=== PATIENT | female | born 1995 | race Two or more races ===

== ENCOUNTER 2024-10-12 19:53 | Inpatient (IN) | payer OTHER ==
[~2024-10-12] VITALS: Ht 165.1 cm; Wt 99.8 kg
--- NOTE | 2024-10-12 20:01 | NUR ---
SE RECIBE FEMINA ALERTA Y ORIENTADA X3 EN AMBULANCIA DEL [facility]O AMBULATORIO [facility]IS[facility] CAGUAS POR SUSPECTED DENGUE Y ANEMIA. SE MIDEN S/V, SE REALIZA EKG Y SE CONECTA PACIENTE A MONITOR CARDIACO Y OXIMETRIA DE PULSO.
[2024-10-12] MEDS ORDERED: 0.9 % SODIUM CHLORIDE 1,000 ML IV STA (20:13)
--- NOTE | 2024-10-12 20:36 | NUR ---
PTE ALERTA Y ORIENTADA X3[place] ORIENTA SOBRE TX MEDICO ,REFIERE ACEPTAR . REALIZA ORDENES EN GARCIA TOTALIDAD
[2024-10-12 21:19] LABS: CALCIUM 8.7 mg/dL (8.5-10.1); CREATININE SERUM 0.73 mg/dL (0.55-1.02); GFR 94.93; POTASSIUM 3.8 mEq/L (3.5-5.1)
[2024-10-12 21:20] LABS: INR 1.21; PARTIAL THROMBOPLASTIN TIME 27.3 SECONDS (22.0-34.0)
[2024-10-12 21:48] LABS: MEAN CELL VOLUME 83.2 fL (80.00-100.00); MEAN CORPUSCULAR HGB CONC 35.7 g/dl (32.0-36.0); RED CELL DISTRIBUTION WIDTH 16.2 % (11.5-14.5)
[2024-10-12 21:50] LABS: MEAN CORPUSCULAR HEMOGLOBIN 29.9 pg (27.00-32.0)
[2024-10-12 21:53] LABS: HEMATOCRIT 16.4 % (36.0-45.00); HEMOGLOBIN 5.9 g/dL (12.0-15.00)
[2024-10-12 22:22] LABS: RED BLOOD COUNT 1.97 M/uL (4.00-6.00)
[2024-10-12 22:31] LABS: URINE APPEARANCE Clear; URINE BILIRRUBIN Negative (NEGATIVE); URINE BLOOD Large; URINE COLOR Orange; URINE GLUCOSE Negative (NEGATIVE); URINE KETONE Negative (NEGATIVE); URINE LEUKOCYTE Trace; URINE NITRATE Negative
[2024-10-12 22:33] LABS: ALBUMIN 3.2 gm/dL (3.4-5.0); BILIRUBIN TOTAL 1.48 mg/dL (0.3-1.2); BILIRUBIN,CONJUGATED 0.38 mg/dL (0.0-0.2); BILIRUBIN,UNCONJUGATED 1.1 mg/dL (0.0-0.6); TOTAL PROTEIN 6.5 gm/dL (6.4-8.2)
[2024-10-12 22:35] LABS: URINE BACTERIA 1553.1 uL (0.0-1933); URINE EPITHELIAL CELLS 29.1 uL (0.0-38.8); URINE RBC 4691.5 uL (0.0-20.8); URINE WBC 30.2 uL (0.0-23.2)
[2024-10-12 22:45] LABS: URINE PROTEIN 100 (NEGATIVE)
[2024-10-12] MEDS ORDERED: ESTROGENS, CONJUGATED 25 MG VIAL IV ONE (23:15)
[2024-10-13] VITALS (9 sets, daily range): BP systolic 109–140; BP diastolic 57–82; O2SAT 96–100
[2024-10-13] MEDS ORDERED: 0.9 % SODIUM CHLORIDE 1,000 ML IV SCH (00:15)
[2024-10-13] MEDS ORDERED: PIPERACILLIN/TAZOBACTAM SODIUM 3.375 GM in DEXTROSE 5 % IN WATER 100 ML IV SCH (00:17)
[2024-10-13] MEDS ORDERED: PANTOPRAZOLE SODIUM 40 MG/VIAL VIAL IV SCH (00:18)
[2024-10-13] MEDS ORDERED: ACETAMINOPHEN 500 MG GEL..CAP PO PRN (00:30)
[2024-10-13] MEDS ORDERED: ONDANSETRON HCL 4 MG in 0.9 % SODIUM CHLORIDE 50 ML IV PRN (00:30)
[2024-10-13 02:42] LABS: D DIMER > 35.20 MG/L
[2024-10-13 03:06] LABS: FIBRINOGEN 423 mg/dL (187.0-446.0)
[2024-10-13] MEDS ORDERED: LEVOTHYROXINE SODIUM 25 MCG TABLET PO SCH (06:00)
[2024-10-13 09:52] LABS: PLATELET COUNT 21 K/uL (150-450)
[2024-10-13 11:39] LABS: FERRITIN 848.2 NG/ML (8-252)
[2024-10-13 13:27] LABS: FOLIC ACID 5.54 ng/ml (4.78-20)
[2024-10-14 05:15] VITALS: BP 126/78; O2SAT 100
[2024-10-14 07:16] VITALS: O2SAT 98
[2024-10-14] MEDS ORDERED: DIPHENHYDRAMINE HCL 50 MG/ML VIAL 1ML IV NR (07:30)
[2024-10-14] MEDS ORDERED: METHYLPREDNISOLONE SOD SUCC 125 MG VIAL IV NR (07:30)
[2024-10-14] MEDS ORDERED: CEFTRIAXONE SODIUM 1,000 MG in DEXTROSE 5 % IN WATER 100 ML IV SCH (09:00)
[2024-10-14 09:26] LABS: HEMATOCRIT 24.3 % (36.0-45.00); MEAN CELL VOLUME 84.5 fL (80.00-100.00); MEAN CORPUSCULAR HGB CONC 34.9 g/dl (32.0-36.0); RED BLOOD COUNT 2.88 M/uL (4.00-6.00); RED CELL DISTRIBUTION WIDTH 15.1 % (11.5-14.5)
[2024-10-14] MEDS ORDERED: ESTROGENS, CONJUGATED 25 MG VIAL IV ONE (10:00)
[2024-10-14 10:05] LABS: ANTI THYROID PEROXIDASE 14 IU/mL (0-34)
[2024-10-14 10:05] LABS: HAPTOGLOBIN 139 mg/dL (33-278)
[2024-10-14 10:10] LABS: MEAN CORPUSCULAR HEMOGLOBIN 29.5 pg (27.00-32.0)
[2024-10-14 10:11] LABS: HEMOGLOBIN 8.5 g/dL (12.0-15.00)
[2024-10-14 10:14] LABS: PLATELET COUNT 41 K/uL (150-450)
[2024-10-14 10:25] LABS: CALCIUM 8.2 mg/dL (8.5-10.1); CREATININE SERUM 0.62 mg/dL (0.55-1.02); GFR 114.62; POTASSIUM 3.65 mEq/L (3.5-5.1)
[2024-10-14 12:00] VITALS: BP 122/86; O2SAT 97
[2024-10-14 12:09] LABS: ANTI JO 1 < 0.2 AI (0.0-0.9); DNA AB DOUBLE STRABDED < 1 IU/mL (0-9)
[2024-10-14 12:11] LABS: ob POSITIVE (NEGATIVE)
[2024-10-14 12:18] LABS: FECAL LEUKOCYTES NEGATIVE (NEGATIVE)
[2024-10-14 16:27] VITALS: BP 128/73; O2SAT 98
[2024-10-14 20:00] VITALS: BP 135/92; O2SAT 97
[2024-10-14] MEDS ORDERED: ESTROGENS, CONJUGATED 25 MG VIAL IV SCH (21:00)
[2024-10-14 23:15] LABS: HEMATOCRIT 28.3 % (36.0-45.00); HEMOGLOBIN 9.9 g/dL (12.0-15.00); MEAN CORPUSCULAR HEMOGLOBIN 29.9 pg (27.00-32.0); MEAN CORPUSCULAR HGB CONC 34.8 g/dl (32.0-36.0); RED BLOOD COUNT 3.29 M/uL (4.00-6.00)
[2024-10-14 23:46] LABS: PLATELET COUNT 28 K/uL (150-450)
[2024-10-14 23:48] VITALS: BP 123/75; O2SAT 96
[2024-10-15 04:00] VITALS: BP 139/77; O2SAT 93
[2024-10-15 07:00] VITALS: BP 127/78; O2SAT 100
[2024-10-15 08:08] LABS: dRVVT 54.8 sec (0.0-47.0); hav igm Negative (Negative); hcv Non Reactive (Non Reactive); hep b c Negative (Negative); hep b s ag Negative (Negative); interp Comment: (.); ptt-la 42.3 sec (0.0-43.5)
[2024-10-15] MEDS ORDERED: METHYLPREDNISOLONE SOD SUCC 125 MG VIAL IV NR (09:45)
[2024-10-15] MEDS ORDERED: DIPHENHYDRAMINE HCL 50 MG/ML VIAL 1ML IM PRN (09:45)
[2024-10-15 12:00] VITALS: BP 122/77; O2SAT 95
[2024-10-15 15:00] VITALS: BP 139/91; O2SAT 100
[2024-10-15 20:00] VITALS: BP 148/88; O2SAT 100
[2024-10-15 20:58] LABS: MEAN CELL VOLUME 86.4 fL (80.00-100.00); MEAN CORPUSCULAR HGB CONC 35.3 g/dl (32.0-36.0); RED BLOOD COUNT 2.64 M/uL (4.00-6.00); RED CELL DISTRIBUTION WIDTH 15.2 % (11.5-14.5)
[2024-10-15] MEDS ORDERED: TRETINOIN PO SCH (21:00)
[2024-10-15 21:02] LABS: MEAN CORPUSCULAR HEMOGLOBIN 30.6 pg (27.00-32.0)
[2024-10-15 21:12] LABS: HEMOGLOBIN 8.1 g/dL (12.0-15.00); PLATELET COUNT 82 K/uL (150-450)
[2024-10-15 21:13] LABS: HEMATOCRIT 22.8 % (36.0-45.00)
[2024-10-15 23:42] VITALS: BP 135/81; O2SAT 98
[2024-10-16 04:11] VITALS: BP 141/87; O2SAT 98
[2024-10-16 06:52] LABS: MEAN CELL VOLUME 84.6 fL (80.00-100.00); RED BLOOD COUNT 2.53 M/uL (4.00-6.00); RED CELL DISTRIBUTION WIDTH 15.1 % (11.5-14.5)
[2024-10-16 07:05] LABS: HEMATOCRIT 21.4 % (36.0-45.00); MEAN CORPUSCULAR HEMOGLOBIN 30.4 pg (27.00-32.0)
[2024-10-16 07:08] LABS: HEMOGLOBIN 7.7 g/dL (12.0-15.00); PLATELET COUNT 53 K/uL (150-450)
[2024-10-16] MEDS ORDERED: PANTOPRAZOLE SODIUM 40 MG TABLET.DR PO SCH (09:00)
[2024-10-16 09:37] LABS: vca igm ab < 36.0 U/mL (0.0-35.9)
[2024-10-16 09:37] LABS: beta 2 gly iga < 9 (0-25); beta 2 gly igg < 9 (0-20); beta 2 gly igm < 9 (0-32)
[2024-10-16 10:08] LABS: g6pd quant 237 (155-399); rbc 2.07 x10E6/uL (3.77-5.28)
[2024-10-16 13:21] VITALS: BP 130/80; O2SAT 100
[2024-10-16 14:05] LABS: cox a16 Negative titer (Neg:<1:100); cox a16 igm Negative titer (Neg:<1:10); cox a24 igm Negative titer (Neg:<1:10); cox a7 Negative titer (Neg:<1:100); cox a7 igm Negative titer (Neg:<1:10); cox a9 igm Negative titer (Neg:<1:10)
[2024-10-16] MEDS ORDERED: METOCLOPRAMIDE HCL 10 MG in 0.9 % SODIUM CHLORIDE 50 ML IV STA (14:49)
[2024-10-16] MEDS ORDERED: DIPHENHYDRAMINE HCL 50 MG/ML VIAL 1ML IV STA (14:52)
[2024-10-16 15:30] VITALS: BP 127/75; O2SAT 99
[2024-10-16] MEDS ORDERED: TRETINOIN 10 MG CAPSULE PO SCH (21:00)
[2024-10-17 16:05] LABS: PARV 0.1 index (0.0-0.8); PARVO B-19 IGG 0.1 index (0.0-0.8)
== END 2024-10-16 18:40 | disposition designated cancer center or children's hospital (05) | DRG 835 ==
LOC: ER 19:53 → ICU-2 10-13 00:18 → ICU 10-13 20:53
PROVIDERS: Emergency Medicine; General Practice; Internal Medicine Hematology & Oncology; Internal Medicine Infectious Disease; ADMIT Internal Medicine; ATTEND Internal Medicine
PROC: 30233R1 Transfusion of Nonautologous Platelets into Peripheral Vein, Percutaneous Approach (ICD-10-PCS; principal; 2024-10-13)
PROC: 30233N1 Transfusion of Nonautologous Red Blood Cells into Peripheral Vein, Percutaneous Approach (ICD-10-PCS; 2024-10-13)
PROC: BW40ZZZ Ultrasonography of Abdomen (ICD-10-PCS; 2024-10-13)
PROC: BW4GZZZ Ultrasonography of Pelvic Region (ICD-10-PCS; 2024-10-13)
PROC: BW21ZZZ Computerized Tomography (CT Scan) of Abdomen and Pelvis (ICD-10-PCS; 2024-10-13)
PROC: BW21YZZ Computerized Tomography (CT Scan) of Abdomen and Pelvis using Other Contrast (ICD-10-PCS; 2024-10-14)
PROC: BW24ZZZ Computerized Tomography (CT Scan) of Chest and Abdomen (ICD-10-PCS; 2024-10-15)
PROC: BW3GYZZ Magnetic Resonance Imaging (MRI) of Pelvic Region using Other Contrast (ICD-10-PCS; 2024-10-15)
PROC: BW30ZZZ Magnetic Resonance Imaging (MRI) of Abdomen (ICD-10-PCS; 2024-10-15)
PROC: 079T3ZX Drainage of Bone Marrow, Percutaneous Approach, Diagnostic (ICD-10-PCS; 2024-10-15)
DX: C92.00 Acute myeloblastic leukemia, not having achieved remission (principal); D61.818 Other pancytopenia; N39.0 Urinary tract infection, site not specified; D69.6 Thrombocytopenia, unspecified; D63.0 Anemia in neoplastic disease; N93.8 Other specified abnormal uterine and vaginal bleeding; N83.202 Unspecified ovarian cyst, left side; E06.3 Autoimmune thyroiditis; F43.20 Adjustment disorder, unspecified
CPT/HCPCS: 72198; 74182